=== PATIENT | female | born 1995 | race Hispanic/Latino ===

== ENCOUNTER 2018-06-17 12:22 | Emergency (ER) | payer BC ==
[2018-06-17 12:49] VITALS: RESP 18; O2SAT 100
[2018-06-17] MEDS ORDERED: Sodium Chloride 0.9% 1,000 ML IV STA (13:36)
--- NOTE | 2018-06-17 13:53 | ED PDOC ---
HPI: Abdomen Time Seen by Provider: 06/17/18 13:22 Chief Complaint (Nursing): GI Problem Chief Complaint (Provider): GI Problem History Per: Patient History/Exam Limitations: no limitations Onset/Duration Of Symptoms: Days (today) Current Symptoms Are (Timing): Still Present Location Of Pain/Discomfort: Epigastric Quality Of Discomfort: "Pain" Associated Symptoms: Nausea, Vomiting, Other (soft stool). denies: Fever, C hills Additional Complaint(s): 22 year old female with no PMHx presents to the ED after developing nausea and continuous nonbloody vomiting earlier this morning. Patient reports that after vomiting, she developed nonradiating epigastric pain. She states she had x3-4 soft stools that were nonbloody and nonmelanotic stool. Patient admits to drinking alcohol yesterday, but states she only drinks during the weekends. She denies fever, chills, antipyretic use, hematemesis, and previous abdominal surgery. Patient is currently on her period. PMD: none provided Abnormal Vaginal Bleeding: No Past Medical History Reviewed: Historical Data, Nursing Documentation, Vital Signs Vital Signs: Last Vital Signs Temp 97.7 F 06/17/18 12:46 Pulse 66 06/17/18 12:46 Resp 18 06/17/18 12:46 BP 124/86 06/17/18 12:46 Pulse Ox 100 06/17/18 12:46 - Medical History PMH: No Chronic Diseases - Surgical History Surgical History: Tonsillectomy - Family History Family History: States: Unknown Family Hx - Social History Current smoker - smoking cessation education provided: No Ex-Smoker (has not smoked in the last 12 months): Yes Alcohol: Social - Immunization History Hx Influenza Vaccination: No - Home Medications Home Medications: Ambulatory Orders Medication Instructions Recorded Famotidine [Pepcid] 20 mg PO DAILY PRN #10 tab 06/17/18 Ondansetron ODT [Zofran ODT] 4 mg PO TID #10 odt 06/17/18 - Allergies Allergies/Adverse Reactions: Allergies Allergy/AdvReac Type Severity Reaction Status Date / Time amoxicillin Allergy ANAPHYLAXIS Verified 06/17/18 12:49 cefprozil [From Cefzil] Allergy ANAPHYLAXIS Verified 06/17/18 12:49 Sulfa (Sulfonamide Allergy ANAPHYLAXIS Verified 06/17/18 12:49 Antibiotics) Review of Systems ROS Statement: Except As Marked, All Systems Reviewed And Found Negative Constitutional: Negative for: Fever, Chills Gastrointestinal: Positive for: Nausea, Vomiting, Abdominal Pain. Negative for: Melena, Hematemesis Physical Exam - Reviewed Nursing Documentation Reviewed: Yes Vital Signs Reviewed: Yes - Physical Exam Appears: Positive for: No Acute Distress Skin: Positive for: Normal Color, Warm, Dry Eye Exam: Positive for: EOMI, Normal appearance, PERRL Cardiovascular/Chest: Positive for: Regular Rate, Rhythm. Negative for: Murmur Respiratory: Positive for: Normal Breath Sounds. Negative for: Respiratory Distress Gastrointestinal/Abdominal: Positive for: Soft, Other (negative [place] sign ). Negative for: Tenderness Extremity: Positive for: Normal ROM (upper and lower) Neurologic/Psych: Positive for: Alert, Oriented (x3) - Laboratory Results Result Diagrams: 06/17/18 14:21 06/17/18 14:21 - ECG O2 Sat by Pulse Oximetry: 100 (RA) Pulse Ox Interpretation: Normal - Progress Re-evaluation Time: 14:55 (Informed of results. Advised to f/u with PMD for further evaluation but is to return to ED immediately if symptoms worsen.) Condition: Re-examined, Improved Medical Decision Making Medical Decision Making: Time: 1335 Plan: --Alcohol serum --CMP --HCG --Lipase --CBC --NS --Pepcid 20 mg IVO --Zofran 4 mg IVP --UA ------- Scribe Attestation: Documented by Mel Breaux, acting as a scribe for Kg Samayoa PA-C Provider Scribe Attestation: All medical record entries made by the Scribe were at my direction and personally dictated by me. I have reviewed the chart and agree that the record accurately reflects my personal performance of the history, physical exam, medical decision making, and the department course for this patient. I have also personally directed, reviewed, and agree with the discharge instructions and disposition. Disposition - Clinical Impression Clinical Impression: Gastroenteritis - Patient ED Disposition Is Patient to be Admitted: No - Disposition Referrals: [facility] [Outside] Disposition: Routine/Home Disposition Time: 15:00 Condition: IMPROVED Additional Instructions: FOLLOW UP WITH YOUR DOCTOR FOR FURTHER EVALUATION RETURN TO ED IMMEDIATELY IF SYMPTOMS WORSEN BEVERLY CARRILLO, thank you for letting us take care of you today. Your provider was Jess Kilgore MD and you were treated for VOMITING. The emergency medical care you received today was directed at your acute symptoms. If you were prescribed any medication, please fill it and take as directed. It may take several days for your symptoms to resolve. Return to the Emergency Department if your symptoms worsen, do not improve, or if you have any other problems. Please contact your doctor or call one of the physicians/clinics you have been referred to that are listed on the Patient Visit Information form that is included in your discharge packet. Bring any paperwork you were given at discharge with you along with any medications you are taking to your follow up visit. Our treatment cannot replace ongoing medical care by a primary care provider outside of the emergency department. Thank you for allowing the [facility] team to be part of your care today. If you had an X-Ray or CT scan: A Radiologist will review the ED reading if any change in treatment is needed we will contact you. If you had a blood, urine, or wound culture: It will take several days for the results, if any change in treatment is needed we will contact you. If you had an STI test: It will take 48 hours for the results. Please call after 1 week if you have not heard back. Prescriptions: Famotidine [Pepcid] 20 mg PO DAILY PRN #10 tab PRN Reason: Dyspepsia Ondansetron ODT [Zofran ODT] 4 mg PO TID #10 odt Instructions: Gastroenteritis (ED) Forms: [employer] (Niuean) Print Language: MARTINIQUAIS
[2018-06-17 14:38] LABS: BASO % 0.6 % (0.0-2.0); EOS % 0.3 % (0.0-4.0); HEMOGLOBIN 12.7 g/dL (12.0-16.0); LYMPH # 1.1 K/uL (1.0-4.3); LYMPH % 16.8 % (20.0-40.0); MEAN CELL VOLUME 87.5 fl (81.0-99.0); MEAN CORPUSCULAR HEMOGLOBIN 29.3 pg (27.0-31.0); MEAN CORPUSCULAR HGB CONC 33.5 g/dL (33.0-37.0); MEAN PLATELET VOLUME 6.4 fl (7.2-11.7); MONO # 0.4 K/uL (0.0-0.8); MONO % 6.8 % (0.0-10.0); NEUT # 4.8 K/uL (1.8-7.0); NEUT % 75.5 % (50.0-75.0); NRBC % 0.1 % (0.0-0.0); RBC 4.36 Mil/uL (3.80-5.20); RED CELL DISTRIBUTION WIDTH 13.4 % (11.5-14.5); WHITE BLOOD COUNT 6.3 K/uL (4.8-10.8)
[2018-06-17 15:06] LABS: ALB/GLOB RATIO 1.4 (1.0-2.1); ALBUMIN 4.8 g/dL (3.5-5.0); ALT/SGPT 26 U/L (9-52); AST/SGOT 31 U/L (14-36); BLOOD UREA NITROGEN 14 mg/dl (7-17); CALCIUM 9.7 mg/dL (8.4-10.2); GFR NON-AFRICAN AMERICAN > 60; LIPASE 44 U/L (23-300)
[2018-06-17 15:47] LABS: SQUAMOUS EPITHIAL < 1 /hpf (0-5); URINE BACTERIA RARE (<OCC); URINE BILIRUBIN NEGATIVE (NEGATIVE); URINE BLOOD NEGATIVE (NEGATIVE); URINE CLARITY SLIGHTY-CLOUDY (Clear); URINE COLOR YELLOW (YELLOW); URINE GLUCOSE (UA) NEG (NEGATIVE); URINE LEUKOCYTE ESTERASE NEG Leu/uL (Negative); URINE PROTEIN NEGATIVE (NEGATIVE); URINE UROBILINOGEN 0.2-1.0 mg/dL (0.2-1.0)
[2018-06-17 17:00] VITALS: BP 137/63; PULSE 74; TEMP 98.4
== END 2018-06-17 16:59 | disposition home or self-care (01) ==
LOC: H.ER 12:22
DX: K52.9 Noninfective gastroenteritis and colitis, unspecified (principal); Z88.2 Allergy status to sulfonamides
CPT/HCPCS: 80053; 81003; 81025; 83690; 84703; 85025; 96374; 96375; 99285; G0480; J2405; J7030

== ENCOUNTER 2018-06-20 18:29 | Emergency (ER) | payer BC ==
[2018-06-20 18:50] VITALS: BP 120/55; PULSE 64; RESP 16; TEMP 98.5; O2SAT 99
--- NOTE | 2018-06-20 19:31 | ED PDOC ---
Upper Extremity Pain/Injury Time Seen by Provider: 06/20/18 19:28 Chief Complaint (Nursing): Finger,Hand,&Wrist Chief Complaint (Provider): LEFT HAND BRUISING History Per: Patient (22 Y/O FEMALE HERE WITH LEFT HAND BRUISING THAT OCCURRED AFTER HAVING IV IN HAND ON MONDAY. NOTES CHANGE IN COLOR OF HAND AND DISCUSSED WITH MOTHER WHO IS PHARMACIST AND ADVISED TO COME TO ED.) Past Medical History Reviewed: Historical Data, Nursing Documentation, Vital Signs Vital Signs: Last Vital Signs Temp 98.5 F 06/20/18 18:47 Pulse 64 06/20/18 18:47 Resp 16 06/20/18 18:47 BP 120/55 L 06/20/18 18:47 Pulse Ox 99 06/20/18 18:47 - Surgical History Surgical History: Tonsillectomy - Family History Family History: States: Unknown Family Hx - Immunization History Hx Influenza Vaccination: No - Home Medications Home Medications: Ambulatory Orders Medication Instructions Recorded Famotidine [Pepcid] 20 mg PO DAILY PRN #10 tab 06/17/18 Ondansetron ODT [Zofran ODT] 4 mg PO TID #10 odt 06/17/18 - Allergies Allergies/Adverse Reactions: Allergies Allergy/AdvReac Type Severity Reaction Status Date / Time amoxicillin Allergy ANAPHYLAXIS Verified 06/20/18 18:46 cefprozil [From Cefzil] Allergy ANAPHYLAXIS Verified 06/20/18 18:46 Sulfa (Sulfonamide Allergy ANAPHYLAXIS Verified 06/20/18 18:46 Antibiotics) Review of Systems ROS Statement: Except As Marked, All Systems Reviewed And Found Negative Physical Exam - Reviewed Nursing Documentation Reviewed: Yes Vital Signs Reviewed: Yes - Physical Exam Appears: Positive for: Well, Non-toxic, No Acute Distress Head Exam: Positive for: ATRAUMATIC, NORMAL INSPECTION, NORMOCEPHALIC Skin: Positive for: Normal Color, Warm, DRY Eye Exam: Positive for: EOMI, Normal appearance, PERRL ENT: Positive for: Normal ENT Inspection Neck: Positive for: Normal, Painless ROM Cardiovascular/Chest: Positive for: Regular Rate, Rhythm Respiratory: Positive for: CNT, Normal Breath Sounds Gastrointestinal/Abdominal: Positive for: Normal Exam, Soft Back: Positive for: Normal Inspection Extremity: Positive for: Other (purplish/dark red hue noted surrounding yellowish/green region dorsum of hand. No erythema. No tenderness elicited. No edema of hand ). Negative for: Normal ROM Neurologic/Psych: Positive for: Alert, Oriented - ECG O2 Sat by Pulse Oximetry: 99 - Progress ED Course And Treament: d/w patient that discoloration appears to be more bruising rather than cellulit is. Patient has multiple allergies to medications and we have decided to have her f/u with ED or urgent care in 2 days to determine need for antibiotics. Advised to return more urgently for fever/increased swelling/pain/erythema. Disposition - Clinical Impression Clinical Impression: Traumatic ecchymosis of left hand - Patient ED Disposition Is Patient to be Admitted: No - Disposition Disposition: Routine/Home Disposition Time: 19:31 Condition: FAIR Additional Instructions: F/U WITH PMD /URGENT CARE OR ED IN 48-72 HOURS Instructions: Contusion (DC)
== END 2018-06-20 19:39 | disposition home or self-care (01) ==
LOC: H.ER 18:29
DX: S60.222A Contusion of left hand, initial encounter (principal); Y84.8 Other medical procedures as the cause of abnormal reaction of the patient, or of later complication, without mention of misadventure at the time of the procedure; Y92.89 Other specified places as the place of occurrence of the external cause

== ENCOUNTER 2018-06-23 12:49 | Emergency (ER) | payer BC ==
[2018-06-23 12:59] VITALS: BP 119/88; PULSE 102; RESP 16; TEMP 98.3; O2SAT 98
--- NOTE | 2018-06-23 13:13 | ED PDOC ---
Upper Extremity Pain/Injury Time Seen by Provider: 06/23/18 13:11 Chief Complaint (Nursing): Upper Extremity Problem/Injury Chief Complaint (Provider): left hand wound check History Per: Patient (22 y/o female here for 2nd visit in ED for left hand bruising. Patient states she had iv placed 6 days ago for vomiting and notes ongoing discoloration of hand. Was seen 3 days ago with similar redness but notes worsening symptoms. Denies any fevers chills.) Past Medical History Reviewed: Historical Data, Nursing Documentation, Vital Signs Vital Signs: Last Vital Signs Temp 98.3 F 06/23/18 12:56 Pulse 102 H 06/23/18 12:56 Resp 16 06/23/18 12:56 BP 119/88 06/23/18 12:56 Pulse Ox 98 06/23/18 12:56 - Surgical History Surgical History: Tonsillectomy - Family History Family History: States: Unknown Family Hx - Immunization History Hx Influenza Vaccination: No - Home Medications Home Medications: Ambulatory Orders Medication Instructions Recorded Famotidine [Pepcid] 20 mg PO DAILY PRN #10 tab 06/17/18 Ondansetron ODT [Zofran ODT] 4 mg PO TID #10 odt 06/17/18 - Allergies Allergies/Adverse Reactions: Allergies Allergy/AdvReac Type Severity Reaction Status Date / Time amoxicillin Allergy ANAPHYLAXIS Verified 06/20/18 18:46 cefprozil [From Cefzil] Allergy ANAPHYLAXIS Verified 06/20/18 18:46 Sulfa (Sulfonamide Allergy ANAPHYLAXIS Verified 06/20/18 18:46 Antibiotics) Review of Systems ROS Statement: Except As Marked, All Systems Reviewed And Found Negative Physical Exam - Reviewed Nursing Documentation Reviewed: Yes Vital Signs Reviewed: Yes - Physical Exam Appears: Positive for: Well, Non-toxic, No Acute Distress Head Exam: Positive for: ATRAUMATIC, NORMAL INSPECTION, NORMOCEPHALIC Skin: Positive for: Warm. Negative for: Normal Color (dark red/puplish hue noted on dorsum of hand increased since last visit. No erythema/no edema) Eye Exam: Positive for: EOMI, Normal appearance, PERRL ENT: Positive for: Normal ENT Inspection Neck: Positive for: Normal, Painless ROM Cardiovascular/Chest: Positive for: Regular Rate, Rhythm Respiratory: Positive for: CNT, Normal Breath Sounds Gastrointestinal/Abdominal: Positive for: Normal Exam, Soft Back: Positive for: Normal Inspection Extremity: Positive for: Normal ROM Neurologic/Psych: Positive for: Alert, Oriented - ECG O2 Sat by Pulse Oximetry: 98 - Progress ED Course And Treament: Seen by Dr. Van in ED as well. Patient reassured. Disposition - Clinical Impression Clinical Impression: Traumatic ecchymosis of left hand - Patient ED Disposition Is Patient to be Admitted: No - Disposition Disposition: Routine/Home Disposition Time: 13:12 Condition: STABLE Instructions: Contusion (DC)
== END 2018-06-23 13:25 | disposition home or self-care (01) ==
LOC: H.ER 12:49
DX: S60.222A Contusion of left hand, initial encounter (principal); Z88.2 Allergy status to sulfonamides